=== PATIENT | female | born 1980 | race Two or more races ===

== ENCOUNTER 2024-09-19 22:11 | Emergency (ER) | payer OTHER ==
[~2024-09-19] VITALS: Ht 149.9 cm; Wt 68.0 kg
[2024-09-20 01:04] LABS: BASOPHILS # (AUTO) 0.1 K/uL (0.0-0.2); EOSINOPHILS # (AUTO) 0.4 K/uL (0.0-0.7); EOSINOPHILS % (AUTO) 6.7 % (0.0-6.0); HEMATOCRIT 41 % (33-45); HEMOGLOBIN 14.2 g/dL (11.5-14.8); LYMPHOCYTES % (AUTO) 30.6 % (20.0-44.0); MEAN CORPUSCULAR HEMOGLOBIN 31 PG (26.0-33.0); MEAN CORPUSCULAR HGB CONC 35 g/dl (31.0-36.0); MEAN CORPUSCULAR VOLUME 90 fL (82-100); MONOCYTES # (AUTO) 0.5 K/uL (0.1-1.30); MONOCYTES % (AUTO) 7.9 % (2.0-12.0); NEUTROPHILS # (AUTO) 3.6 K/uL (1.8-8.9); NEUTROPHILS % (AUTO) 53.8 % (43.0-81.0); PLATELET COUNT (AUTO) 367 K/uL (150-450); RED BLOOD CELL COUNT(AUTO) 4.58 MIL/uL (4.0-5.2); RED CELL DISTRIBUTION WIDTH 13.4 % (11.5-15.0); WHITE BLOOD COUNT (AUTO) 6.6 K/uL (4.3-11.0)
[2024-09-20 01:25] LABS: APPEARANCE,URINE SLIGHTLY CLOUDY (CLEAR); BILIRUBIN,URINE NEGATIVE (NEGATIVE); BLOOD, URINE NEGATIVE Ery/uL (NEGATIVE); COLOR,URINE YELLOW (YELLOW); KETONES,URINE NEGATIVE (NEGATIVE); LEUKOCYTE ESTERASE ,URINE TRACE (NEGATIVE); NITRITE, URINE POSITIVE (NEGATIVE); PROTEIN,URINE NEGATIVE (NEGATIVE); UGLUCOSE 1+ mg/dL (NEGATIVE); UROBILINOGEN,URINE 0.2 EU/dL (0.2)
[2024-09-20 01:26] LABS: ALANINE AMINOTRANSFERASE 14 U/L (12-78); ALBUMIN 4.1 g/dL (3.4-5.0); ALCOHOL, BLOOD < 3 mg/dL (0-10); ALKALINE PHOSPHATASE 71 U/L (46-116); ASPARTATE AMINOTRANSFERASE 14 U/L (15-37); BILIRUBIN,TOTAL 0.3 mg/dL (0.2-1.0); CALCIUM, SERUM 9.5 mg/dL (8.5-10.1); CARBON DIOXIDE 32 mmol/L (21-32); CHLORIDE 102 mmol/L (98-107); CREATININE 0.8 mg/dL (0.6-1.3); GLUCOSE 153 mg/dL (74-106); SALICYLATE 3.6 mg/dL (2.8-20.0); SODIUM SERUM 138 mmol/L (136-145); TOTAL PROTEIN, SERUM 7.7 g/dL (6.4-8.2); UREA NITROGEN, BLOOD 18 mg/dL (7-18)
[2024-09-20 01:28] LABS: ACETAMINOPHEN <10 ug/ml (10-30)
[2024-09-20 01:32] LABS: BARBITURATE, URINE NEGATIVE (NEGATIVE); BENZODIAZEPINE, URINE NEGATIVE (NEGATIVE); CANNABINOID, URINE NEGATIVE (NEGATIVE); COCCAINE, URINE NEGATIVE (NEGATIVE); OPIATE, URINE NEGATIVE (NEGATIVE); PHENCYCLIDINE SCREEN,URINE NEGATIVE (NEGATIVE)
[2024-09-20 01:36] LABS: AMPHETAMINE, URINE POSITIVE (NEGATIVE); PREGNANCY TEST URINE QUAL NEGATIVE (NEGATIVE)
[2024-09-20 02:21] LABS: ADD URINE CULTURE YES; BACTERIA,URINE Many /HPF (None Seen); CALCIUM OXALATE CRYSTALS,UR Moderate /HPF (None Seen); RBC,URINE 0-2 /HPF (0-2); SQUAMOUS EPITHELIAL CELL,UR Few /HPF (None Seen)
[2024-09-20] MEDS ORDERED: NITR100C6 PO (05:45)
[2024-09-20 06:21] VITALS: BP 112/80; TEMP 98; O2SAT 100
== END 2024-09-20 06:23 | disposition home or self-care (01) ==
LOC: ER 22:13
DX: F32.A Depression, unspecified (principal); N39.0 Urinary tract infection, site not specified; E11.9 Type 2 diabetes mellitus without complications; R45.851 Suicidal ideations; Z20.822 Contact with and (suspected) exposure to COVID-19; Z79.899 Other long term (current) drug therapy
CPT/HCPCS: 36415; 80053-TC; 81001; 84703-TC; 85025-TC; G0480